=== PATIENT | female | born 1945 | race Caucasian/White ===

== ENCOUNTER 2017-07-26 18:11 | Emergency (ER) | payer MEDICARE, BC ==
--- NOTE | 2017-07-26 18:52 | Emergency Department Record ---
History of Present Illness - General Chief Complaint: Dizziness Stated Complaint: LT SIDE HEAD NUMBNESS,NAUSEA,VOMITTING Time Seen by Provider: 07/26/17 18:34 Source: Patient Mode of Arrival: Ambulatory Limitations: No limitations - History of Present Illness Initial Comments: 72 yo female presents to ED with a CC of a numbness/tingling to the left scalp that began approximately 2 days ago. Patient reports she had a headache at that time which has resolved, however the numbness/tingling sensation has not resolved. Patient denies weakness to the face/extremities, denies any symptoms below the neck. Patient denies change in her speech. Patient reports a previous history of ankylosing spondilytis, reports taking a monthly auto- immune suppressant medication. Patient denies anti-coagulation medication use. MD Complaint: Other Onset/Timin -: Days(s) Timing: Sudden onset Description: Lightheadedness History of Same: No History of Trauma: No Severity: Mild Improves With: Nothing Worsens With: Nothing Associated Symptoms: Denies other symptoms - [place] Coma Scale Eye Response: (4) Open spontaneously Motor Response: (6) Obeys commands Verbal Response: (5) Oriented [place] Total: 15 - Related Data Allergies Allergy/AdvReac Type Severity Reaction Status Date / Time Sulfa (Sulfonamide Allergy HIVES Unverified 07/26/17 18:20 Antibiotics) sulfamethoxazole Allergy HIVES Unverified 07/26/17 18:20 [From Bactrim] trimethoprim [From Bactrim] Allergy HIVES Unverified 07/26/17 18:20 Travel Screening - Travel/Exposure Within Last 30 Days Have you traveled within the last 30 days?: No - Travel/Exposure Within Last Year Have you traveled outside the [place] in the last year?: No - Additonal Travel Details Have you been exposed to anyone with a communicable illness?: No - Travel Symptoms Symptom Screening: None Review of Systems Constitutional: Denies: Chills, Fever, Malaise, Night sweats Eyes: Denies: Eye discharge, Eye pain ENT: Denies: Congestion, Ear pain, Epistaxis Respiratory: Denies: Cough, Dyspnea Cardiovascular: Denies: Chest pain, Dyspnea on exertion Endocrine: Denies: Fatigue, Heat or cold intolerance Gastrointestinal: Denies: Abdominal pain, Nausea, Vomiting Genitourinary: Denies: Incontinence, Retention Musculoskeletal: Denies: Arthralgia, Back pain, Gout, Joint swelling Skin: Denies: Bruising, Change in color Neurological: Reports: Headache, Numbness, Paresthesias, Tingling. Denies: Abnormal gait, Confusion, Tremors Psychiatric: Denies: Anxiety Hematological/Lymphatic: Denies: Anemia, Blood Clots Physical Exam - General General Appearance: Alert, Oriented x3, Cooperative, No acute distress Limitations: No limitations - Head Head exam: Atraumatic, Normocephalic, Normal inspection Head exam detail: negative: Abrasion, Contusion, Alfaro's sign, General tenderness, Hematoma, Laceration - Eye Eye exam: Normal appearance. negative: Conjunctival injection, Periorbital swelling, Periorbital tenderness, Scleral icterus - ENT Ear exam: negative: Auricular hematoma, Auricular trauma Nasal Exam: negative: Active bleeding, Discharge, Dried blood, Sinus tenderness Mouth exam: negative: Drooling, Laceration, Tongue elevation - Neck Neck exam: Normal inspection. negative: Meningismus, Tenderness - Respiratory Respiratory exam: Normal lung sounds bilaterally. negative: Respiratory distress, Rhonchi, Stridor, Wheezes - Cardiovascular Cardiovascular Exam: Regular rate, Normal rhythm, Normal heart sounds - GI/Abdominal GI/Abdominal exam: Soft. negative: Distended, Rebound, Rigid, Tenderness - Rectal Rectal exam: Deferred - exam: Deferred - Extremities Extremities exam: Normal inspection. negative: Calf tenderness, Pedal edema, Tenderness - Back Back exam: Denies: CVA tenderness (R), CVA tenderness (L) - Neurological Neurological exam: Alert, Normal gait, Oriented X3, Other (Slight hesitation to the left sided facial muscles on examination, similarly the left eyebrow does not elevate as significantly as the right. UE strength 5/5 consumer education specialist strength, lower extremity strength 5/5 and symmetric bilaterally.) - Psychiatric Psychiatric exam: Normal affect, Normal mood - Skin Skin exam: Normal color. negative: Abrasion Type of lesion: negative: abrasion Course Vital Signs 07/26/17 18:24 Temperature 98.2 F Pulse Rate 82 Respiratory 18 Rate Blood Pressure 156/122 Pulse Ox 96 - Reevaluation(s) Reevaluation #1: 07/26/17 19:33 Labs reviewed and are grossly unremarkable for an acute process. Reevaluation #2: 07/26/17 19:55 CT Brain: Meningioma resulting in mass effect to the left frontal lobe. Reevaluation #3: 07/26/17 20:03 Patient was updated on all results, given the patient is having neurological findings on examination, recommended transfer for MRI and possible neurosurgical evaluation. Patient prefers [facility], 1-call contacted for transfer. Reevaluation #4: 07/26/17 20:18 Case was discussed with Dr. Singleton, [facility]. Medical Decision Making - Lab Data Result diagrams: 07/26/17 18:58 07/26/17 18:58 Disposition Disposition: Transfer Clinical Impression: Meningioma, Facial weakness Disposition: Acute Care Hospital Transfer Transfer To: [facility] Reason For Transfer: MRI, Neurosugery evaluation Accepting Physician: Mani Time Discussed w/Accepting Physician: 20:19 Condition: (2) Stable Forms: Patient Portal Access Time of Disposition: 20:19 Quality - Quality Measures Quality Measures: N/A - Blood Pressure Screening Does Patient Have Any of the Following: No Blood Pressure Classification: Hypertensive Reading Systolic Measurement: 156 Diastolic Measurement: 122 Screening for High Blood Pressure: < First Hypertensive BP, F/U Documented > [ [id number]] First Hypertensive Follow-up Interventions: Referral to alternative/primary care provider.
[2017-07-26 19:10] LABS: BASO % 0.3 % (0-6); EOS % 1.8 % (0-6); GRAN % 49.3 % (47-80); HEMATOCRIT 41.8 % (35.0-47.0); HEMOGLOBIN 14.2 gm/dl (11.6-16.0); LYMPH % 41.3 % (16-45); MEAN CELL VOLUME 85.7 fl (81-97); MEAN CORPUSCULAR HEMOGLOBIN 29.1 pg (27-33); MEAN PLATELET VOLUME 10.1 fl (7.4-10.4); MONO % 7.3 % (0-9); PLATELET COUNT 217 K/uL (130-400); RED BLOOD COUNT 4.88 M/uL (3.80-5.40); RED CELL DISTRIBUTION WIDTH 12.8 % (11.5-14.5); WHITE BLOOD COUNT W/O DIFF 6.2 K/uL (4.2-12.2)
[2017-07-26 19:25] LABS: ALB/GLOB RATIO 1.4 (1.1-1.8); ALBUMIN 4.3 g/dL (4.0-5.0); ALKALINE PHOSPHATASE 73 U/L (35-104); ALT/SGPT 19 U/L (<33); AST/SGOT 26 U/L (10.0-35.0); BLOOD UREA NITROGEN 6 mg/dL (8-23); CREATININE 0.6 mg/dL (0.5-0.9); EST GLOMERULAR FILTRATION RATE > 60 mL/min; GLUCOSE,RANDOM 93 mg/dL (74-109); TOTAL PROTEIN 7.3 g/dL (6.6-8.7)
--- NOTE | 2017-07-28 09:44 | CT SCAN REPORT ---
EXAM: CT SCAN OF THE HEAD HISTORY: PATIENT HAS A HISTORY OF HEADACHE AND SLIGHT FACIAL NUMBNESS. PATIENT IS DIZZY. TECHNIQUE: Serial axial CT scan of the head was performed at 2.5 mm intervals from the base of the skull to the apex without the use of intravenous contrast. Sagittal and coronal reconstructions are provided. No comparison CT scans are available. FINDINGS: The ventricles, cisterns, and sulci appear within normal limits for size, shape and attenuation. Within the left frontal extraaxial space, there is a calcified 10 mm lesion against the anterior aspect of the falx. This lesion creates mild mass effect upon the left frontal lobe. This finding likely represents a calcified meningioma. The shine and white differentiation appear within normal limits. There is no CT evidence of intra or extraaxial fluid collection to suggest bleeding. Bone windows demonstrate no CT evidence of a fracture or dislocation of the skull. The paranasal sinuses are unremarkable. IMPRESSION: 1. SMALL MENINGIOMA IS NOTED WITHIN THE LEFT FRONTAL EXTRAAXIAL SPACE DISCUSSED ABOVE. 2. NO CT EVIDENCE OF AN ACUTE INTRACRANIAL PROCESS. IF THERE IS FURTHER CLINICAL CONCERN THEN MRI OF THE BRAIN CAN BE OBTAINED FOR FURTHER EVALUATION. JOB NUMBER: [id number] [facility]
== END 2017-07-26 21:45 | disposition short-term general hospital (02) ==
LOC: ER 18:11
DX: D32.0 Benign neoplasm of cerebral meninges (principal); R29.810 Facial weakness; R11.2 Nausea with vomiting, unspecified; R42 Dizziness and giddiness; R51 Headache; R20.0 Anesthesia of skin
CPT/HCPCS: 70450; 80053; 85025; 99285